=== PATIENT | female | born 1990 | race African-American/Black ===

== ENCOUNTER 2023-09-06 16:03 | Emergency (ER) | payer OTHER ==
[2023-09-06 16:33] VITALS: TEMP 97.8; BMI 28.0
[2023-09-06 16:39] LABS: BASO % 0.8 % (0-2.0); EOS % 0.3 % (0-4.5); HEMATOCRIT 28.1 % (32.4-45.2); HEMOGLOBIN 8.3 GM/dL (10.7-15.3); LYMPH % 24.9 % (8-40); MCH 20.9 pg (25.7-33.7); MCHC 29.5 g/dl (32.0-36.0); MEAN PLT VOLUME 9.9 fl (7.5-11.1); MONO % 5.1 % (3.8-10.2); NEUT % 68.9 % (42.8-82.8); PLATELET COUNT 228 10^3/uL (134-434); RBC 3.96 M/mm3 (3.60-5.2); RDW 22.2 % (11.6-15.6); WHITE BLOOD COUNT 15.7 K/mm3 (4.0-10.0)
[2023-09-06 16:54] LABS: PROTHROMBIN TIME (PATIENT) 11.5 SEC (9.7-13.0)
[2023-09-06 17:05] LABS: POTASSIUM 5.5 mmol/L (3.5-5.1)
[2023-09-06 17:06] LABS: ANISOCYTOSIS 3+; MACROCYTOSIS 0; OVALOCYTE 1+; TARGET CELLS 1+; TEAR DROP CELLS 1+
[2023-09-06 17:07] LABS: CALCIUM 8.9 mg/dL (8.5-10.1)
[2023-09-06 17:08] LABS: ALBUMIN 2.8 g/dl (3.4-5.0); BLOOD UREA NITROGEN 7.7 mg/dL (7-18)
[2023-09-06 17:11] LABS: CREATININE 0.7 mg/dL (0.55-1.3)
[2023-09-06 17:13] LABS: BILIRUBIN,TOTAL 0.4 mg/dL (0.2-1); TOT PROT 7.2 g/dl (6.4-8.2)
[2023-09-06] MEDS: morphine CARPU-JECT 2 MG/1 ML DISP.SYRIN IVPUSH ONE (17:13)
[2023-09-06] MEDS: SODIUM CHLORIDE 0.9% 500 ML INFUS.BAG IV ONE (17:13)
[2023-09-06] MEDS: ACETAMINOPHEN 1000 MG/100 ML BAG IVPB ONE (17:13)
[2023-09-06] MEDS ORDERED: MORPHINE SULFATE 2 MG/ML SYRINGE ONE ×2 (17:14→17:56)
[2023-09-06 17:22] LABS: LACTIC ACID 2.3 mmol/L (0.4-2.0)
[2023-09-06] MEDS: morphine SULFATE 4 MG/ML VIAL IVPUSH ONE (18:15)
[2023-09-06] MEDS: MORPHINE SULFATE 2 MG/ML SYRINGE IVPUSH ONE (18:19)
[2023-09-06] MEDS ORDERED: HYDROmorphone HCL CARPU-JECT 2 MG/1 ML DISP.SYRIN ONE (19:08)
[2023-09-06] MEDS: HYDROmorphone HCl 2 MG/ML VIAL IVPUSH ONE (19:19)
[2023-09-06] MEDS ORDERED: KETOROLAC TROMETHAMINE 15 MG/ML VIAL ONE (19:31)
[2023-09-06] MEDS: KETOROLAC TROMETHAMINE 15 MG/ML VIAL IVPUSH ONE (19:35)
[2023-09-06] MEDS ORDERED: fentaNYL CITRATE 250 MCG/5 ML VIAL ONE (20:14)
[2023-09-06 20:55] LABS: BASO % 0.3 % (0-2.0); HEMATOCRIT 23.1 % (32.4-45.2); LYMPH % 7.9 % (8-40); MCH 20.9 pg (25.7-33.7); MCHC 30.1 g/dl (32.0-36.0); MEAN CELL VOLUME 69.4 fl (80-96); MEAN PLT VOLUME 9.8 fl (7.5-11.1); MONO % 2.3 % (3.8-10.2); NEUT % 89.5 % (42.8-82.8); PLATELET COUNT 221 10^3/uL (134-434); RBC 3.33 M/mm3 (3.60-5.2); RDW 21.9 % (11.6-15.6); WHITE BLOOD COUNT 12.9 K/mm3 (4.0-10.0)
[2023-09-06 21:14] LABS: CALCIUM 8.4 mg/dL (8.5-10.1)
[2023-09-06 21:15] LABS: ALBUMIN 2.8 g/dl (3.4-5.0); BLOOD UREA NITROGEN 8.5 mg/dL (7-18)
[2023-09-06 21:18] LABS: CREATININE 0.7 mg/dL (0.55-1.3)
[2023-09-06 21:20] LABS: BILIRUBIN,TOTAL 0.3 mg/dL (0.2-1); TOT PROT 6.4 g/dl (6.4-8.2)
[2023-09-06] MEDS: MISOPROSTOL 200 MCG TABLET PO SCH (22:01)
[2023-09-06 23:14] VITALS: BP 101/65; PULSE 93; RESP 17
[2023-09-06] MEDS ORDERED: FERROUS SO4 325 MG TABLET (FP) ONE (23:14)
[2023-09-06] MEDS: FERROUS SO4 325 MG TABLET (FP) PO ONE (23:18)
== END 2023-09-06 23:30 | disposition home or self-care (01) ==
LOC: JER 16:03
PROC: 3E0333Z Introduction of Anti-inflammatory into Peripheral Vein, Percutaneous Approach (ICD-10-PCS; principal; 2023-09-06)
PROC: 3E033NZ Introduction of Analgesics, Hypnotics, Sedatives into Peripheral Vein, Percutaneous Approach (ICD-10-PCS; 2023-09-06)
PROC: 3E033NZ Introduction of Analgesics, Hypnotics, Sedatives into Peripheral Vein, Percutaneous Approach (ICD-10-PCS; 2023-09-06)
PROC: 3E033NZ Introduction of Analgesics, Hypnotics, Sedatives into Peripheral Vein, Percutaneous Approach (ICD-10-PCS; 2023-09-06)
PROC: 3E033NZ Introduction of Analgesics, Hypnotics, Sedatives into Peripheral Vein, Percutaneous Approach (ICD-10-PCS; 2023-09-06)
PROC: 3E033NZ Introduction of Analgesics, Hypnotics, Sedatives into Peripheral Vein, Percutaneous Approach (ICD-10-PCS; 2023-09-06)
DX: N93.9 Abnormal uterine and vaginal bleeding, unspecified (principal); R10.9 Unspecified abdominal pain; R42 Dizziness and giddiness
CPT/HCPCS: 36415; 76817-TC; 80053; 83605; 84702; 85025; 85610; 85730; 86850; 86870; 86880; 86900; 86901; 86902; 86922; 88305-TC; 93005; 93010; 99285-25; J0131